=== PATIENT | male | born 1960 | race Caucasian/White ===

== ENCOUNTER → 2017-03-06 | Outpatient (CLI) | payer BC, OTHER ==
[~2017-03-06] VITALS: Ht 175.3 cm; Wt 69.9 kg
[~2017-03-06] MED LIST: ALEVE220 MG PO; BENICAR20 MG PO; DEXILANT60 MG PO; IBUPROFEN 200200 M1 PO; NORCO 5-325 TA1 EACH PO
--- NOTE | ~2017-03-06 | HPC ---
[facility] [place] [address] [place] [address] PAIN MANAGEMENT CONSULTATION Name: CÉSAR SALEH Room #: REG CHRIS Fay#: [id number] Admission: 03/06/17 Attend Phys: Hector Delgado MD Discharge: Date of : 62 Report #: [id number] THIS REPORT FOR: //name// CC: Marty Delgado DATE OF SERVICE: 03/06/2017 DATE OF REGISTRATION: 03/06/2017 CHIEF COMPLAINT: Left shoulder pain. The patient is a pleasant 56-year-old I have seen in the past for lumbar radiculopathy. He has received a single epidural injection in 2012 with resolution of all of his back pain. He has had some mild lumbar pain with radiculopathy. Since then he was quite pleased with his response to injection therapy. Over the course of the last 4 years, he has had some pain in his left arm. He has been noted to have rotator cuff tear. It has been worsening recently and is here for an injection. He says that he is unable to do many of his activities including playing golf, but more and more the pain is getting severe, he scores the intensity as 6. Pain is worse with external rotation to reach behind his back. He has tried anti-inflammatory drugs with little improvement with naproxen sodium 220 mg q. 8 hours. The only other medication is Benicar. ALLERGIES: None. 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 It did require skin graft which was taken from the skin just below his right clavicle. PHYSICAL EXAMINATION: Blood pressure 117/71, heart rate 75, BMI is 22.7. Examination of the left shoulder reveals pain and tenderness anteriorly overlying the biceps tendon. He has pain with external and internal rotation. There is no motor weakness noted throughout. IMPRESSION: Left shoulder pain with bicipital tendinitis. RECOMMENDATION: Injection of left shoulder and bicipital tendon. PROCEDURE: Skin was prepped with ChloraPrep. Skin anesthetized under fluoroscopic guidance to identify location and confirmation. A 27-gauge needle was used to anesthetize skin and subcutaneous tissue and then I gently injected with that same needle. A total of 5 mL of 0.5% bupivacaine mixed with [address] [id number] PAIN MANAGEMENT CONSULTATION Name: CÉSAR SALEH Room #: REG CHRIS Fay#: [id number] Admission: 03/06/17 Attend Phys: Hector Delgado MD Discharge: Date of : 62 Report #: [id number] triamcinolone. By the time he left the recovery room, his pain was dramatically reduced. We plan to see him back in the clinic as needed. By: [id number] Hector Delgado MD /nt
[2017-03-06 14:56] VITALS: BP 117/71
== END | disposition home or self-care (01) ==
LOC: PAIN 07:20
DX: M25.512 Pain in left shoulder (principal); M75.22 Bicipital tendinitis, left shoulder

== ENCOUNTER → 2018-10-14 | Outpatient (CLI) | payer OTHER | LOC: CAT 10:13 | DX: Z13.6 Encounter for screening for cardiovascular disorders (principal); E78.00 Pure hypercholesterolemia, unspecified ==

== ENCOUNTER → 2021-10-04 | Outpatient (CLI) | payer OTHER | LOC: CAT 08:06 | PROVIDERS: ATTEND Family Medicine | DX: Z13.6 Encounter for screening for cardiovascular disorders (principal); I25.10 Atherosclerotic heart disease of native coronary artery without angina pectoris ==